=== PATIENT | male | born 1990 | race Caucasian/White ===

== ENCOUNTER 2023-10-17 17:57 | Emergency (ER) | payer OTHER ==
[2023-10-17 18:13] VITALS: BP 137/85; PULSE 67; RESP 16; TEMP 97.7; BMI 25.7
[2023-10-17] MEDS ORDERED: IBUPROFEN 600 MG TABLET (FP) PO ONE ×2 (19:39)
== END 2023-10-17 20:25 | disposition home or self-care (01) ==
LOC: FER 17:57
DX: M54.2 Cervicalgia (principal); R51.9 Headache, unspecified; S13.4XXA Sprain of ligaments of cervical spine, initial encounter; V49.50XA Passenger injured in collision with unspecified motor vehicles in traffic accident, initial encounter; Y92.410 Unspecified street and highway as the place of occurrence of the external cause
CPT/HCPCS: 72050-TC-FY; 99283-25